=== PATIENT | female | born 1985 | race Caucasian/White ===

== ENCOUNTER 2024-05-07 20:48 | Emergency (ER) | payer MEDICARE, SELFPAY ==
[2024-05-07 20:58] VITALS: BP 97/66; PULSE 81; RESP 16; TEMP 36.7; O2SAT 99; BMI 26.5
[2024-05-07 21:34] LABS: Bilirubin Urine Negative (Negative); Blood Urine Negative (Negative); Glucose Urine UA Negative (Normal); Ketones Urine Negative (Negative); Leukocyte Esterase Urine Negative (Negative); Nitrate Urine Negative (Negative); Protein Urine Negative (Negative); Specific Gravity, Urine 1.015 (1.005-1.030); Urine Appearance Clear (CLEAR); Urine Color Yellow (Yellow); Urobilinogen Urine 0.2 mg/dL (Negative)
[2024-05-07 21:39] LABS: Add Urine Microscopic? YES; Bacteria Urine None Seen /hpf; Hyaline Casts Urine 3.71 /lpf; RBC Urine 0-2 /hpf (0-2); Squamous Epithelial Cell Urine 0-5 /hpf (0-5); WBC Urine 0-5 /hpf (0-5)
[2024-05-07] MEDS: baclofen 10 mg Tablet PO (21:58)
[2024-05-07] MEDS: ibuprofen 800 mg tablet PO (21:58)
[2024-05-07 21:59] VITALS: BP 97/75; PULSE 88; RESP 16; O2SAT 99
--- NOTE | 2024-05-07 23:07 | ED_ITS ---
HPI - Female Genitourinary General: Chief complaint: Urogenital-Female Stated complaint: Pain with urinating blood back pain n/v Time Seen by Provider: 05/07/24 21:05 History of Present Illness: Tyesha Valera is a 39-year-old female that presents to the emergency department with flank pain and urinary retention. Patient states she has chronic issues with urinary tract infections. Has not been able to urinate all day. Here in the emergency department she was able to give a small specimen. She states that it was bloody. Last urinary tract infection was 5 months ago. She last used antibiotics at that time Related Data Previous Rx's Medication Instructions Recorded baclofen 5 mg tablet 5 mg PO TID PRN muscle spasm #30 05/07/24 tabs ibuprofen 800 mg tablet 800 mg PO TID #30 tabs 05/07/24 Allergies Allergy/AdvReac Type Severity Reaction Status Date / Time acetaminophen [From Percocet] Allergy ALGY-Difficulty Verified 05/07/24 21:03 Breathing oxycodone [From Percocet] Allergy ALGY-Difficulty Verified 05/07/24 21:03 Breathing Review of Systems General: Reports: 10 or more systems reviewed and unremarkable except in HPI and below Physical Exam Const: COMMON NORMALS: no acute distress GENERAL APPEARANCE: cooperative ORIENTATION/CONSCIOUSNESS: Yes awake Lymph: LYMPHATIC: no lymphadenopathy noted Chest: COMMONS NORMALS: normal inspection of the chest Breast/axilla inspection: Yes no chest deformity, asymmetry, normal contours, no nodules, masses, tenderness Resp: COMMON NORMALS: normal respiratory effort, No retractions, No use of accessory muscles and clear to auscultation bilaterally EFFORT & INSPECTION: Yes able to speak in complete sentences and Yes symmetric chest movement AUSCULTATION: clear to auscultation bilaterally Cardio: COMMON NORMALS: regular rate, regular rhythm and Peripheral pulses 2+ throughout RATE: regular rate RHYTHM: regular rhythm PERIPHERAL PULSES: Peripheral pulses 2+ throughout GI: COMMON NORMALS: Normal to inspection, nondistended, normoactive bowel sounds present, Soft to palpation, non-tender and No hepatosplenomegaly present INSPECTION: Yes normal to inspection AUSCULTATION: Yes normoactive bowel sounds PALPATION: Yes Soft to palpation and Yes No hepatosplenomegaly present RECTAL EXAM: deferred Skin: COMMON NORMALS: no rashes or lesions noted, no wounds and turgor normal GENERAL SKIN EXAM: no rashes or lesions noted and turgor normal Course Vital Signs: Vital signs: Vital Signs Temperature 98.1 F 05/07/24 20:58 Pulse Rate 88 05/07/24 21:59 Respiratory Rate 16 05/07/24 21:59 Blood Pressure 97/75 05/07/24 21:59 Pulse Oximetry 99 05/07/24 21:59 Oxygen Delivery Me thod Room Air 05/07/24 21:59 MDM - Female Medical Decision Making I assumed care abruptly at 2300. Patient has been in the ER for about 2 and half hours. Patient was originally seen by another provider. Patient states that she was diagnosed with a muscle spasm today. I am not quite sure what to make of patient's situation so I started fresh with her. We already have a urinalysis completed which was unremarkable. She is stating that she is unable to urinate and what little does come out is bloody. I ordered a bladder scan as well as a CBC and BMP. 1 I wanted to look for urinary retention and look for both infection and renal function. Unfortunately, patient was very upset and left AGAINST MEDICAL ADVICE. Lab Data Laboratory Results Urine Color Yellow (Yellow) 05/07/24 21:15 Urine Appearance Clear (CLEAR) 05/07/24 21:15 Urine pH 6.0 (5-7) 05/07/24 21:15 Ur Specific [place] 1.015 (1.005-1.030) 05/07/24 21:15 Urine Protein Negative (Negative) 05/07/24 21:15 Urine Glucose (UA) Negative (Normal) 05/07/24 21:15 Urine Ketones Negative (Negative) 05/07/24 21:15 Urine Blood Negative (Negative) 05/07/24 21:15 Urine Nitrate Negative (Negative) 05/07/24 21:15 Urine Bilirubin Negative (Negative) 05/07/24 21:15 Urine Urobilinogen 0.2 mg/dL (Negative) 05/07/24 21:15 Ur Leukocyte Esterase Negative (Negative) 05/07/24 21:15 Urine RBC 0-2 /hpf (0-2) 05/07/24 21:15 Urine WBC 0-5 /hpf (0-5) 05/07/24 21:15 Ur Squamous Epith Cells 0-5 /hpf (0-5) 05/07/24 21:15 Amorphous Sediment Not Reportable 05/07/24 21:15 Urine Bacteria None seen /hpf (NONE) 05/07/24 21:15 Hyaline Casts 3.71 /lpf 05/07/24 21:15 No radiology studies performed this visit Discharge Plan Discharge Patient Disposition: Home Clinical Impression: Back pain Qualifiers: Back pain location: thoracic back pain Chronicity: acute Back pain laterality: right Qualified Code(s): M54.6 - Pain in thoracic spine Condition: Stable Prescriptions: New ibuprofen 800 mg tablet 800 mg PO TID Qty: 30 0RF baclofen 5 mg tablet 5 mg PO TID PRN (Reason: muscle spasm) Qty: 30 0RF Discharge Orders: Discharge ED (Routine); Ordered 05/07/24 Ordered By: Felicita Jauregui Patient Instructions: Flank Pain, Pain Management Activity Restrictions/Additional Instructions: Follow-up with your primary care physician early next week for recheck if symptoms have not resolved. 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
--- NOTE | 2024-05-07 23:34 | PC.NURSE ---
Pt. was tired of waiting and refused blood draw or further testing. When Telma from lab entered the room , she refused blood draw and demanded to leave.
--- NOTE | 2024-05-08 10:17 | W.ED.FEMALGU ---
HPI - Female Genitourinary General: Chief complaint: Urogenital-Female Stated complaint: Pain with urinating blood back pain n/v Time Seen by Provider: 05/07/24 21:05 History of Present Illness: This patient is a 39-year-old white female who presents to the emergency department with dysuria. She states she did notice some blood in the urine as well. No fever. She is having some mild right flank pain. She states she has had a kidney stone in the past. The symptoms started yesterday. Her past medical history is significant for COPD. Related Data Previous Rx's Medication Instructions Recorded baclofen 5 mg tablet 5 mg PO TID PRN muscle spasm #30 05/07/24 tabs ibuprofen 800 mg tablet 800 mg PO TID #30 tabs 05/07/24 Allergies Allergy/AdvReac Type Severity Reaction Status Date / Time acetaminophen [From Percocet] Allergy ALGY-Difficulty Verified 05/07/24 21:03 Breathing oxycodone [From Percocet] Allergy ALGY-Difficulty Verified 05/07/24 21:03 Breathing Review of Systems General: Reports: 10 or more systems reviewed and unremarkable except in HPI and below : Reports: flank pain, dysuria and hematuria Physical Exam Const: COMMON NORMALS: no acute distress, patient oriented x3 and no limitations GENERAL APPEARANCE: cooperative and comfortable HENMT: COMMON NORMALS: normocephalic, atraumatic, Normal nasal mucous membranes and turbinates present, moist oral mucous membranes and oropharynx normal HEAD & SCALP: normal to inspection, normocephalic and atraumatic FACE & SINUS: normal facial exam NOSE: Normal nasal mucous membranes and turbinates present Eye: COMMON NORMALS: Equal, round and reactive pupils present, EOMs intact bilaterally and conjunctivae normal GENERAL EYE: appearance normal, both eyes and all related structures CONJUNCTIVA: Yes conjunctivae normal PUPIL: Yes Equal, round and reactive pupils present Neck/C-Spine: COMMON NORMALS: supple and no JVD Chest: COMMONS NORMALS: normal inspection of the chest Resp: COMMON NORMALS: normal respiratory effort and clear to auscultation bilaterally AUSCULTATION: clear to auscultation bilaterally Cardio: COMMON NORMALS: no JVD, regular rate, regular rhythm, No gallops present (Cardio), No murmurs present (Cardio) and No rub (Cardio) RATE: regular rate RHYTHM: regular rhythm GI: COMMON NORMALS: Normal to inspection, nondistended, normoactive bowel sounds present, Soft to palpation and non-tender AUSCULTATION: Yes normoactive bowel sounds PALPATION: Yes Soft to palpation : COMMON NORMALS: Yes no CVA tenderness BLADDER/KIDNEY EXAM: Yes no CVA tenderness Back/Pelvis: COMMON NORMALS: no CVA tenderness and thoracic and lumbar spine normal to inspection Extremity: COMMON NORMALS: normal to inspection Neuro: COMMON NORMALS: patient oriented x3 and CN's II-XII intact bilaterally Psych: COMMON NORMALS: mental status grossly normal, Normal thought process present and cooperative THOUGHT PROCESS: Normal thought process present Skin: COMMON NORMALS: no rashes or lesions noted, turgor normal and no jaundice GENERAL SKIN EXAM: no rashes or lesions noted and turgor normal Course Vital Signs: Vital signs: Vital Signs Temperature 98.1 F 05/07/24 20:58 Pulse Rate 88 05/07/24 21:59 Respiratory Rate 16 05/07/24 21:59 Blood Pressure 97/75 05/07/24 21:59 Pulse Oximetry 99 05/07/24 21:59 Oxygen Delivery Me thod Room Air 05/07/24 21:59 MDM - Female Medical Decision Making Patient refused any needle sticks so she refused blood work. She just wants her urine checked. Her urinalysis was normal. This is likely musculoskeletal back pain. I did place her on baclofen and ibuprofen she was given her first doses in the emergency department. She was discharged in stable condition instructed to follow-up with her primary care physician next week for recheck if symptoms have not resolved. Lab Data Laboratory Results Urine Color Yellow (Yellow) 05/07/24 21:15 Urine Appearance Clear (CLEAR) 05/07/24 21:15 Urine pH 6.0 (5-7) 05/07/24 21:15 Ur Specific [place] 1.015 (1.005-1.030) 05/07/24 21:15 Urine Protein Negative (Negative) 05/07/24 21:15 Urine Glucose (UA) Negative (Normal) 05/07/24 21:15 Urine Ketones Negative (Negative) 05/07/24 21:15 Urine Blood Negative (Negative) 05/07/24 21:15 Urine Nitrate Negative (Negative) 05/07/24 21:15 Urine Bilirubin Negative (Negative) 05/07/24 21:15 Urine Urobilinogen 0.2 mg/dL (Negative) 05/07/24 21:15 Ur Leukocyte Esterase Negative (Negative) 05/07/24 21:15 Urine RBC 0-2 /hpf (0-2) 05/07/24 21:15 Urine WBC 0-5 /hpf (0-5) 05/07/24 21:15 Ur Squamous Epith Cells 0-5 /hpf (0-5) 05/07/24 21:15 Amorphous Sediment Not Reportable 05/07/24 21:15 Urine Bacteria None seen /hpf (NONE) 05/07/24 21:15 Hyaline Casts 3.71 /lpf 05/07/24 21:15 No radiology studies performed this visit Discharge Plan Discharge Patient Disposition: Home Clinical Impression: Back pain Qualifiers: Back pain location: thoracic back pain Chronicity: acute Back pain laterality: right Qualified Code(s): M54.6 - Pain in thoracic spine Condition: Stable Prescriptions: New ibuprofen 800 mg tablet 800 mg PO TID Qty: 30 0RF baclofen 5 mg tablet 5 mg PO TID PRN (Reason: muscle spasm) Qty: 30 0RF Discharge Orders: Discharge ED (Routine); Ordered 05/07/24 Ordered By: Felicita Jauregui Patient Instructions: Flank Pain, Pain Management Activity Restrictions/Additional Instructions: Follow-up with your primary care physician early next week for recheck if symptoms have not resolved. Coding Level of Care Code ED Supervisor [employer] for Luciano Smalls
== END 2024-05-07 23:35 | disposition home or self-care (01) ==
PROVIDERS: Emergency Medicine; Emergency Provider Nurse Practitioner
DX: M54.6 Pain in thoracic spine (principal)
CPT/HCPCS: 81001; 99283